=== PATIENT | female | born 2000 | race American Indian/Alaskan Native ===

== ENCOUNTER 2022-01-02 11:54 | Inpatient (IN) | payer MEDICAID, OTHER ==
[2022-01-02] MEDS ORDERED: LIDOCAINE-MPF (1%) 10 MG/1 ML VIAL 5 ML INFILTRATI ONE (19:01)
[2022-01-02] MEDS ORDERED: KETOROLAC 10 MG TAB PO ONE (19:02)
--- NOTE | 2022-01-02 19:02 | Emergency Department Report ---
ED Abdominal Pain HPI - General Chief Complaint: Abdominal Pain Stated Complaint: RT SIDE PAIN Time Seen by Provider: 01/02/22 18:09 Source: patient Mode of arrival: Ambulatory Limitations: No Limitations - History of Present Illness Initial Comments: 21-year-old black female with no past medical history presents to the emergency department for evaluation of 1 month history of abdominal pain and vaginal discharge. She states that she was treated at another ER about a week ago, diagnosed with a urinary tract infection, and sent home with a 7-day course of Macrobid. She states that she took medication as prescribed but abdominal pain has gotten worse. She denies fever, nausea, and vomiting. She states that pain is worse when she walks at times. -: Gradual, month(s) Location: diffuse (1) Radiation: none Migration to: no migration Severity scale (0 -10): 10 Quality: cramping, aching Consistency: constant Worsens With: movement, other (Palpation) Associated Symptoms: dysuria. denies: nausea, vomiting, diarrhea, fever, chills, hematemesis, hematochezia, melena, hematuria, anorexia, syncope - Related Data Home Medications Medication Instructions Recorded Confirmed Last Taken No Known Home Medications [No 01/03/22 01/03/22 Unknown Reported Home Medications] Allergies Allergy/AdvReac Type Severity Reaction Status Date / Time No Known Allergies Allergy Verified 01/02/22 22:51 ED Review of Systems ROS: Stated complaint: RT SIDE PAIN Other details as noted in HPI Comment: All other systems reviewed and negative Constitutional: denies: chills, fever Respiratory: denies: shortness of breath, SOB with exertion, SOB at rest Cardiovascular: denies: chest pain, palpitations, dyspnea on exertion Gastrointestinal: abdominal pain. denies: nausea, vomiting, diarrhea, h ematemesis, melena, hematochezia Genitourinary: dysuria, discharge. denies: urgency, frequency, hematuria, abnormal menses Musculoskeletal: denies: back pain Neurological: denies: headache, weakness ED Past Medical Hx - Medications Home Medications: Home Medications Medication Instructions Recorded Confirmed Last Taken Type No Known Home Medications [No 01/03/22 01/03/22 Unknown History Reported Home Medications] ED Physical Exam - General Limitations: No Limitations General appearance: alert, in no apparent distress - Head Head exam: Present: atraumatic, normocephalic - Eye Eye exam: Present: normal appearance. Absent: conjunctival injection - Neck Neck exam: Present: normal inspection. Absent: lymphadenopathy - Respiratory Respiratory exam: Present: normal lung sounds bilaterally. Absent: respiratory distress, wheezes, rales, rhonchi, stridor, chest wall tenderness - Cardiovascular Cardiovascular Exam: Present: regular rate, normal heart sounds - GI/Abdominal GI/Abdominal exam: Present: soft, tenderness, guarding (Bilateral lower quadrant), normal bowel sounds. Absent: distended, rebound, rigid - External exam: Present: other (Noted to have purulent discharge to area). Absent: erythema, swelling, lesions, bleeding Speculum exam: Present: vaginal discharge, cervical discharge Bi-manual exam: Present: cervical motion tendernes, adnexal tenderness, uterine tenderness - Extremities Exam Extremities exam: Present: normal inspection, normal capillary refill. Absent: pedal edema, joint swelling, calf tenderness - Back Exam Back exam: Present: normal inspection, CVA tenderness (R), CVA tenderness (L). Absent: tenderness - Neurological Exam Neurological exam: Present: alert, oriented X3, normal gait - Psychiatric Psychiatric exam: Present: normal affect, normal mood - Skin Skin exam: Present: warm, dry, intact, normal color ED Course Vital Signs 01/02/22 01/02/22 01/03/22 13:58 20:36 03:05 Temperature 98.8 F Pulse Rate 95 H Respiratory 18 16 16 Rate Blood Pressure 105/74 [Right] O2 Sat by Pulse 99 Oximetry ED Medical Decision Making - Lab Data Result diagrams: 01/03/22 08:07 01/02/22 18:48 - Radiology Data Radiology results: report reviewed CT abdomen and pelvis: FINDINGS: LOWER CHEST: No significant abnormality. AORTA / ARTERIES: No significant abnormality. IVC / VEINS: No significant abnormality. LYMPH NODES: No significant adenopathy. COLON: No significant abnormality. APPENDIX: No significant abnormality. STOMACH / SMALL BOWEL: No significant abnormality. PERITONEUM: No free fluid. No free air. No fluid collection. LIVER: No significant abnormality. GALLBLADDER: No significant abnormality. BILE DUCTS: No significant abnormality. PANCREAS: No significant abnormality. SPLEEN: No significant abnormality. ADRENALS: No significant abnormality. RIGHT KIDNEY / URETER: No significant abnormality. LEFT KIDNEY / URETER: No significant abnormality. URINARY BLADDER: No significant abnormality. REPRODUCTIVE ORGANS: Within the bilateral adnexa there are fusiform fluid collections which demonstrate central area of hypodensity and peripheral increased density. There is also some mesenteric fat stranding along the right deep pelvis. SKELETAL SYSTEM: No significant abnormality. ADDITIONAL FINDINGS: None. IMPRESSION: 1. CT findings suggesting tubo-ovarian abscess versus hydrosalpinx versus bilateral ovarian cysts. Pelvic ultrasound recommended for further evaluation. Ultrasound pelvic complete and transvaginal: FINDINGS: Uterus: Present. Size: 6.8 x 4.7 x 5.3 cm. Endometrial complex: Normal measuring 0.7 cm. Mass lesions: None. Additional findings: None. Right Ovary: Size: 4.5 x 3.3 x 4.2 cm Blood flow: Normal. Cyst or mass: There is a 3.6 cm probable hemorrhagic cyst. No other suspicious solid or cystic lesions. Left Ovary: Size: 4.7 x 3.4 x 4.2 cm Blood flow: Normal. Cyst or mass: A 2.5 cm cyst containing internal echoes is noted, possibly representing a hemorrhagic cyst. No other suspicious solid or cystic lesions. Urinary Bladder: Normal. Free Fluid: A small amount of free fluid is present along the pelvis. Additional Findings: The fallopian tubes are dilated and contain echogenic material. IMPRESSION: 1. Abnormal appearance of the fallopian tubes, concerning for tubo-ovarian abscesses/pyosalpinx. 2. Complex bilateral ovarian cysts as above may represent hemorrhagic cyst. Reevaluation with a pelvic ultrasound in 6-8 weeks is recommended. - Medical Decision Making 21-year-old black female with no past medical history presents to the emergency department for evaluation of 1 month history of abdominal pain and vaginal discharge. She states that she was treated at another ER about a week ago, di agnosed with a urinary tract infection, and sent home with a 7-day course of Macrobid. She states that she took medication as prescribed but abdominal pain has gotten worse. She denies fever, nausea, and vomiting. She states that pain is worse when she walks at times. Exam impressive for significant abdominal tenderness with light touch along with significant cervical motion tenderness. CT concerning for tubo-ovarian cyst, so pelvic and transvaginal ultrasound obtained which showed likely tubo-ovarian abscess. Wet prep positive for trichomonas. Patient treated with Rocephin 500 mg IM, doxycycline 100 mg IV, and Flagyl 500 mg IV in the emergency department along with morphine and Toradol for pain. Case discussed with Dr. Archer, WRAPPER OPERATOR, admit patient for further evaluation and management. Plan of care discussed with patient and sister and they verbalized understanding of and agr eement with. - Differential Diagnosis PID, tubu-ovarian abscess, std, pyelonephritis. Critical care attestation.: If time is entered above; I have spent that time in minutes in the direct care of this critically ill patient, excluding procedure time. ED Disposition Clinical Impression: Tubo-ovarian abscess Disposition: ADMITTED INPATIENT Is pt being admited?: Yes Condition: Stable
[2022-01-02 19:43] LABS: Mean Corpuscular HGB Conc 33 % (30-34); Mean Corpuscular Volume 80 fl (79-97); Platelet Count 389 K/mm3 (140-440); Red Cell Distribution Width 14.9 % (13.2-15.2)
[2022-01-02 19:50] LABS: Alanine Aminotransferase 8 units/L (7-56); Albumin 4.4 g/dL (3.9-5); Blood Urea Nitrogen 6 mg/dL (7-17); Calcium 9.7 mg/dL (8.4-10.2); Hemolysis Index 9
[2022-01-02 20:10] LABS: BUN/Creatinine Ratio 10
[2022-01-02 20:15] LABS: Bilirubin,Urine NEG (Negative); Blood,Urine NEG (Negative); Color,Urine Yellow (Yellow); Mucus,Urine 3+ /HPF; Protein,Urine <15 mg/dL mg/dL (Negative)
--- NOTE | 2022-01-02 20:36 | Cat Scan Report ---
CT ABDOMEN AND PELVIS WITHOUT CONTRAST INDICATION / CLINICAL INFORMATION: abd pain. TECHNIQUE: Axial CT images were obtained through the abdomen and pelvis without IV contrast. All CT scans at this location are performed using CT dose reduction for ALARA by means of automated exposure control. COMPARISON: None available. FINDINGS: LOWER CHEST: No significant abnormality. AORTA / ARTERIES: No significant abnormality. IVC / VEINS: No significant abnormality. LYMPH NODES: No significant adenopathy. COLON: No significant abnormality. APPENDIX: No significant abnormality. STOMACH / SMALL BOWEL: No significant abnormality. PERITONEUM: No free fluid. No free air. No fluid collection. LIVER: No significant abnormality. GALLBLADDER: No significant abnormality. BILE DUCTS: No significant abnormality. PANCREAS: No significant abnormality. SPLEEN: No significant abnormality. ADRENALS: No significant abnormality. RIGHT KIDNEY / URETER: No significant abnormality. LEFT KIDNEY / URETER: No significant abnormality. URINARY BLADDER: No significant abnormality. REPRODUCTIVE ORGANS: Within the bilateral adnexa there are fusiform fluid collections which demonstra te central area of hypodensity and peripheral increased density. There is also some mesenteric fat st randing along the right deep pelvis. SKELETAL SYSTEM: No significant abnormality. ADDITIONAL FINDINGS: None. IMPRESSION: 1. CT findings suggesting tubo-ovarian abscess versus hydrosalpinx versus bilateral ovarian cysts. Pe lvic ultrasound recommended for further evaluation. Signer Name: Dominic Post DO Signed: 01/02/2022 8:32 PM Workstation Name: [id number]
--- NOTE | 2022-01-02 22:35 | Ultrasound Report ---
ULTRASOUND PELVIS INDICATION: Pelvic pain. TECHNIQUE: Transabdominal and Transvaginal. Duplex Color Doppler used: Yes. COMPARISON: CT abdomen and pelvis without contrast performed on the same day. FINDINGS: Uterus: Present. Size: 6.8 x 4.7 x 5.3 cm. Endometrial complex: Normal measuring 0.7 cm. Mass lesions: None. Additional findings: None. Right Ovary: Size: 4.5 x 3.3 x 4.2 cm Blood flow: Normal. Cyst or mass: There is a 3.6 cm probable hemorrhagic cyst. No other suspicious solid or cystic lesion s. Left Ovary: Size: 4.7 x 3.4 x 4.2 cm Blood flow: Normal. Cyst or mass: A 2.5 cm cyst containing internal echoes is noted, possibly representing a hemorrhagic cyst. No other suspicious solid or cystic lesions. Urinary Bladder: Normal. Free Fluid: A small amount of free fluid is present along the pelvis. Additional Findings: The fallopian tubes are dilated and contain echogenic material. IMPRESSION: 1. Abnormal appearance of the fallopian tubes, concerning for tubo-ovarian abscesses/pyosalpinx. 2. Complex bilateral ovarian cysts as above may represent hemorrhagic cyst. Reevaluation with a pelvi c ultrasound in 6-8 weeks is recommended. Signer Name: Moncho Delvalle MD Signed: 01/02/2022 10:31 PM Workstation Name: [id number]
[2022-01-02] MEDS ORDERED: DOXYCYCLINE HYCLATE 100 MG in SODIUM CHLORIDE 0.9% 250ML 250 ML IV ONE (22:46)
[2022-01-02] MEDS ORDERED: MORPHINE 4 MG/1 ML INJ IV ONE (22:49)
[2022-01-02] MEDS ORDERED: ONDANSETRON 4 MG/2 ML INJ IV ONE (22:49)
[2022-01-02] MEDS ORDERED: metroNIDAZOLE/NS 500 MG/100 ML 500 MG/100 ML BAG IV ONE (22:50)
[2022-01-03] MEDS ORDERED: ACETAMINOPHEN 325 MG TAB PO PRN (00:38)
[2022-01-03] MEDS ORDERED: MORPHINE 2 MG/1 ML INJ IV PRN (00:38)
--- NOTE | 2022-01-03 00:48 | History and Physical Report ---
History of Present Illness Date of examination: 01/02/22 Chief complaint: Abdominal pain, vaginal discharge, and urinary tract infection History of present illness: 20-year-old reports a 1 month history of abdominal pain and vaginal discharge. She was diagnosed with a urinary tract infection 1 week ago and took Macrobid for this; however, her symptoms did not improve and she began to start having back pain. She sought care in the emergency department today. ED provider examined the patient and noted purulent vaginal discharge, cervical motion tenderness, and bilateral costovertebral angle tenderness. Pelvic ultrasound revealed ovarian cysts with a complex appearance; however, there was suspicion for tubo-ovarian abscess. I reviewed the images myself, and I had clinical suspicion for bilateral pyosalpinx. The patient received Rocephin 500 mg IM x1 in the emergency department. Urinalysis had a significant amount of white blood cells. This patient is being admitted to the general medical floor for IV antibiotics for treatment of suspected pyosalpinx and pyelonephritis. Past History Past Medical History: no pertinent history Past Surgical History: no surgical history Family/Genetic History: none Social history: no significant social history - Obstetrical History : 1 Para: 0 Medications and Allergies Allergies Allergy/AdvReac Type Severity Reaction Status Date / Time No Known Allergies Allergy Verified 01/02/22 22:51 Active Meds: Active Medications Acetaminophen (Acetaminophen 325 Mg Tab) 650 mg PO Q4H PRN PRN Reason: Pain, Mild (1-3) Ceftriaxone Sodium (Ceftriaxone 1 Gm Inj) 1 gm IM Q24H ZACKARY; Protocol Stop: 01/10/22 00:44 Doxycycline Hyclate 100 mg/ (Sodium Chloride) 250 mls @ 250 mls/hr IV Q12HR ZACKARY; Protocol Stop: 01/10/22 00:59 Metronidazole (Flagyl 500 Mg/100 Ml) 500 mg in 100 mls @ 100 mls/hr IV Q12H ZACKARY; Protocol Stop: 01/10/22 00:59 Ibuprofen (Ibuprofen 800 Mg Tab) 800 mg PO Q8H PRN PRN Reason: Pain, Moderate (4-6) Review of Systems All systems: negative - Vital Signs Vital signs: Vital Signs Temp Pulse Resp BP Pulse Ox 98.8 F 95 H 18 105/74 99 01/02/22 13:58 01/02/22 13:58 01/02/22 13:58 01/02/22 13:58 01/02/22 13:58 Temp Pulse Resp BP Pulse Ox 98.8 F 95 H 16 105/74 99 01/02/22 13:58 01/02/22 13:58 01/02/22 20:36 01/02/22 13:58 01/02/22 13:58 - Physical Exam Breasts: Positive: normal Cardiovascular: Regular rate Lungs: Positive: Normal air movement Abdomen: Positive: normal appearance, soft, tenderness, other (Bilateral costovertebral angle tenderness) Genitourinary (Female): Positive: normal external genitalia, normal perenium Vagina: Positive: discharge Cervix: Positive: other (Tenderness) Uterus: Positive: normal size, tender Adnexa: both: tenderness Anus/Rectum: Positive: normal perianal skin Extremities: Positive: normal Deep Tendon Reflex Grade: Normal +2 Results Result Diagrams: 01/02/22 18:48 01/02/22 18:48 Abnormal lab results 01/02/22 01/02/22 01/02/22 Range/Units 18:48 18:48 18:48 WBC 14.6 H (4.5-11.0) K/mm3 MCH 27 L (28-32) pg Sodium 136 L (137-145) mmol/L Chloride 96.8 L (98-107) mmol/L BUN 6 L (7-17) mg/dL C-Reactive Protein 14.30 H (0.00-1.30) mg/dL Lipase 12 L (13-60) units/L Urine WBC (Auto) (0.0-6.0) /HPF 01/02/22 Range/Units Unknown WBC (4.5-11.0) K/mm3 MCH (28-32) pg Sodium (137-145) mmol/L Chloride (98-107) mmol/L BUN (7-17) mg/dL C-Reactive Protein (0.00-1.30) mg/dL Lipase (13-60) units/L Urine WBC (Auto) 76.0 H (0.0-6.0) /HPF Urine culture ordered. Gonorrhea/chlamydia DNA probe ordered. Wet mount performed. Ultrasound: report reviewed (Transvaginal pelvic ultrasound= tubo-ovarian abscess suspected.), other (Bilateral renal ultrasound ordered.) Assessment and Plan - Patient Problems (1) Pyosalpinx Current Visit: Yes Status: Acute Plan to address problem: 1.) Admit patient to general medical floor. 2.) Start IV Rocephin, IV doxycycline, and IV metronidazole per CDC recommendation for treatment. 3.) Continue IV fluids. 4.) Repeat CBC in the morning. 5.) Likely discharge after 24-hour of IV antibiotics, and prescription of oral doxycycline and metronidazole to be given for 14 days. 6.) Await results of gonorrhea/chlamydia DNA probe. (2) Pyelonephritis Current Visit: Yes Status: Acute Plan to address problem: 1.) Prescribe Rocephin 1 g every 24 hours x7 days. 2.) After 24 hours of IV antibiotics, likely discharge home with oral Omnicef or Suprax. 3.) Await results of urine culture. 4.) Await results of bilateral renal ultrasound.
--- NOTE | 2022-01-03 01:57 | Ultrasound Report ---
ULTRASOUND RENAL INDICATION: CVA Tenderness. COMPARISON: No relevant prior imaging study available. FINDINGS: RIGHT KIDNEY: Size: 11.9 cm. Echogenicity: Normal. Parenchymal thickness: Normal. Hydronephrosis: None. Cyst or mass: None. Stones: None. LEFT KIDNEY: Size: 11.2 cm. Echogenicity: Normal. Parenchymal thickness: Normal. Hydronephrosis: None. Cyst or mass: None. Stones: None. Urinary Bladder: No significant abnormality. Free Fluid: None. Additional Findings: None. IMPRESSION 1. No acute sonographic abnormality of the kidneys. Signer Name: Moncho Delvalle MD Signed: 01/03/2022 1:52 AM Workstation Name: [id number]
[2022-01-03] MEDS: IBUPROFEN 800 MG TAB PO PRN ×2 (03:05→18:46)
[2022-01-03] MEDS: SODIUM CHLORIDE 0.9% 1000 ML 1,000 ML IV SCH ×2 (04:21→14:10)
[2022-01-03] MEDS: DOXYCYCLINE HYCLATE 100 MG in SODIUM CHLORIDE 0.9% 250ML 250 ML IV SCH ×2 (04:23→17:28)
[2022-01-03] MEDS: metroNIDAZOLE/NS 500 MG/100 ML 500 MG/100 ML BAG IV SCH ×2 (05:29→16:39)
[2022-01-03 08:21] LABS: Basophils # (Auto) 0.1 K/mm3 (0.0-0.1); Basophils % (Auto) 0.5 % (0.0-1.8); Eosinophils # (Auto) 0.3 K/mm3 (0.0-0.4); Eosinophils % (Auto) 2.4 % (0.0-4.3); Lymphocytes # (Auto) 2.1 K/mm3 (1.2-5.4); Lymphocytes % (Auto) 19.1 % (13.4-35.0); Mean Corpuscular HGB Conc 31 % (30-34); Mean Corpuscular Volume 80 fl (79-97); Monocytes % (Auto) 8.8 % (0.0-7.3); Platelet Count 344 K/mm3 (140-440); Red Blood Count 3.98 M/mm3 (3.65-5.03); Red Cell Distribution Width 14.8 % (13.2-15.2)
[2022-01-03] MEDS: cefTRIAXone/NS 1 GM/50 ML 1 GM/50 ML BAG IV SCH (10:59)
--- NOTE | 2022-01-03 11:45 | Progress Note ---
Assessment and Plan Pelvic pain with right TOA and bilateral enlarged fallopian tubes, afebrile 1. Continue triple abx rocephin, doxy and flagyl as per admit plan unless symptoms worsen 2. plan of care discussed with pt that she will need to continue antibiotics for a complete 2wks as an outpatient after receiving IV treatment x24hrs and need for follow up as an out patient in clinic with sequelae of infertility if left untreated. Surgical mgt if symptoms worsens versus IR drainage as indicated All questions encouraged and answered Subjective Date of service: 01/03/22 Principal diagnosis: HD#1 with Pelvic pain, left TOA and bilat hydro/pyo salpinx Interval history: pt denies N/V/F/C and has been receiving IV triple antibiotics admitted earlier this morning. Pt has tolerated regular diet. pt denies dysuria and states she has voided only once since today. Objective - Constitutional Vitals: Vital Signs - 12hr 01/03/22 01/03/22 01/03/22 03:05 03:31 04:05 Temperature 98.0 F Pulse Rate 98 H Pulse Rate [ Right Radial] Respiratory 16 18 18 Rate Blood Pressure 95/57 Blood Pressure [Right] O2 Sat by Pulse 99 Oximetry 01/03/22 01/03/22 01/03/22 04:38 08:27 08:30 Temperature 97.6 F Pulse Rate 67 Pulse Rate [ 80 Right Radial] Respiratory 18 18 Rate Blood Pressure Blood Pressure 92/56 [Right] O2 Sat by Pulse 99 98 99 Oximetry General appearance: Present: no acute distress - Neck Neck: normal ROM - Respiratory Respiratory effort: normal - Breasts Breasts: deferred - Cardiovascular Rhythm: regular Extremities: No edema Extremity abnormal: other (neg CVAT noted today) - Gastrointestinal General gastrointestinal: Present: soft - Genitourinary Female genitourinary: other (Right mid and RLQ tenderness without rebound) - Integumentary Integumentary: warm, dry - Neurologic Neurologic: moves all extremities - Psychiatric Psychiatric: cooperative - Labs CBC & Chem 7: 01/03/22 08:07 01/02/22 18:48 Labs: Abnormal lab results 01/02/22 01/02/22 01/02/22 Range/Units 18:48 18:48 18:48 WBC 14.6 H (4.5-11.0) K/mm3 Hgb (10.1-14.3) gm/dl MCH 27 L (28-32) pg [place] % (Auto) (0.0-7.3) % [place] # (Auto) (0.0-0.8) K/mm3 Seg Neutrophils # (1.8-7.7) K/mm3 Sodium 136 L (137-145) mmol/L Chloride 96.8 L (98-107) mmol/L BUN 6 L (7-17) mg/dL C-Reactive Protein 14.30 H (0.00-1.30) mg/dL Lipase 12 L (13-60) units/L Urine WBC (Auto) (0.0-6.0) /HPF 01/02/22 01/03/22 Range/Units Unknown 08:07 WBC 11.2 H (4.5-11.0) K/mm3 Hgb 10.0 L (10.1-14.3) gm/dl MCH 25 L (28-32) pg [place] % (Auto) 8.8 H (0.0-7.3) % [place] # (Auto) 1.0 H (0.0-0.8) K/mm3 Seg Neutrophils # 7.8 H (1.8-7.7) K/mm3 Sodium (137-145) mmol/L Chloride (98-107) mmol/L BUN (7-17) mg/dL C-Reactive Protein (0.00-1.30) mg/dL Lipase (13-60) units/L Urine WBC (Auto) 76.0 H (0.0-6.0) /HPF Medications & Allergies - Medications Allergies/Adverse Reactions: Allergies No Known Allergies Allergy (Verified 01/02/22 22:51) Home Medications: Home Medications Medication Instructions Recorded Confirmed Last Taken Type No Known Home Medications [No 01/03/22 01/03/22 Unknown History Reported Home Medications] Active Medications: Generic Name Dose Route Start Last Admin Trade Name Freq PRN Reason Stop Dose Admin Acetaminophen 650 mg 01/03/22 00:38 Acetaminophen 325 Mg Tab PO Q4H PRN Pain, Mild (1-3) Doxycycline Hyclate 100 mg/ 250 mls @ 250 mls/hr 01/03/22 01:00 01/03/22 04:23 Sodium Chloride IV 250 mls/hr Q12H ZACKARY Administration Protocol Metronidazole 500 mg in 100 mls @ 100 mls/hr 01/03/22 01:00 01/03/22 05:29 Flagyl 500 Mg/100 Ml IV 01/10/22 00:59 100 mls/hr Q12H ZACKARY Administration Protocol Sodium Chloride 1,000 mls @ 125 mls/hr 01/03/22 01:00 01/03/22 04:21 Nacl 0.9% 1000 Ml IV 125 mls/hr DIRECT ZACKARY Administration Ceftriaxone Sodium 1 gm in 50 mls @ 100 mls/hr 01/03/22 11:00 01/03/22 10:59 Rocephin/Ns 1 Gm/50 Ml IV 100 mls/hr Q24H ZACKARY Administration Protocol Ibuprofen 800 mg 01/03/22 00:38 01/03/22 03:05 Ibuprofen 800 Mg Tab PO 800 mg Q8H PRN Administration Pain, Moderate (4-6)
[2022-01-04] MEDS: SODIUM CHLORIDE 0.9% 1000 ML 1,000 ML IV SCH ×2 (00:38→11:59)
[2022-01-04] MEDS: metroNIDAZOLE/NS 500 MG/100 ML 500 MG/100 ML BAG IV SCH ×2 (04:05→15:48)
[2022-01-04] MEDS: DOXYCYCLINE HYCLATE 100 MG in SODIUM CHLORIDE 0.9% 250ML 250 ML IV SCH (05:44)
[2022-01-04] MEDS: cefTRIAXone/NS 1 GM/50 ML 1 GM/50 ML BAG IV SCH (11:42)
[2022-01-04] MEDS: IBUPROFEN 800 MG TAB PO PRN (15:23)
--- NOTE | 2022-01-04 16:12 | Discharge Summary ---
Providers - Providers Date of Admission: 01/03/22 00:38 Date of discharge: 01/04/22 Attending physician: ASMITA TREJO MD 01/03/22 Consult to Case Management [CONS] Routine Services Needed at Discharge: Other Filter Tip Catcher Notified:: yes Comment:: This patient has no insurance. Please assist with getting Medicaid. Primary care physician: RESEARCH COORDINATOR Hospitalization Reason for admission: other (bilatera ovarain cyst vs TOA) baby: female Condition at discharge: Stable Disposition: 01 HOME / SELF CARE / HOMELESS Plan - Discharge Medications Prescriptions: metroNIDAZOLE [Metronidazole] 500 mg PO BID #7 DOXYCYCLINE Hyclate [Vibramycin CAP] 100 mg PO Q12HR #14 capsule - Provider Discharge Summary Activity: no sex for 6 weeks Diet: routine Additional instructions: [] Smoking cessation referral if applicable(refer to patient education folder for contact #) [] Refer to [facility]'s [facility] Booklet Call your doctor immediately for: * Fever > 100.5 * Heavy vaginal bleeding ( >1 pad per hour) * Severe persistent headache * Shortness of breath * Reddened, hot, painful area to leg or breast * Drainage or odor from incision. * Keep incision clean and dry at all times and follow doctor's instructions regarding bathing/showering - Follow up plan Follow up: PRIMARY CARE, [Primary Care Provider] - 3-5 Days ASMITA TREJO MD [Staff Physician] - 7 Days
--- NOTE | 2022-01-04 16:13 | Progress Note ---
Subjective - Subjective Date of service: 01/04/22 Principal diagnosis: HD#2 with Pelvic pain, left TOA and bilat hydro/pyo salpinx Interval history: afebrile no pelvic pain DC home on po abx and FUP in 7 days Halima Orellana MD Objective - Vital Signs Latest vital signs: Vital Signs Temp Pulse Resp BP Pulse Ox 01/04/22 11:33 98.0 F 82 18 113/68 99 01/04/22 08:10 100 01/04/22 07:43 97.7 F 75 18 99/65 100 01/04/22 04:20 97.8 F 73 18 104/71 100 01/04/22 00:19 98.0 F 79 18 92/44 100 01/03/22 20:30 100 01/03/22 19:46 98.4 F 87 18 114/68 100 Intake and Output 01/04/22 01/04/22 01/04/22 07:59 15:59 23:59 Intake Total 400 1840 Output Total 2650 Balance 400 -810 Intake: IV 100 1000 FLAGYL 500 MG/100 ML 500 100 mg In 100 ml @ 100 mls/hr IV Q12H ZACKARY Rx#: [id number] NaCl 0.9% 1000 ml 1,000 1000 ml @ 125 mls/hr IV DIRECT ZACKARY Rx#:[id number] Oral 480 Intake, Free Water 300 360 Output: Urine 2650 Void 2650 Other: Total, Intake Amount 480 Total, Output Amount 900 Voiding Method Toilet # Voids Void 1 3
[2022-01-04 17:13] VITALS: BP 118/68
== END 2022-01-04 17:17 | disposition home or self-care (01) | DRG 758 ==
LOC: ED 11:54 → OB 01-03 00:38
PROVIDERS: ADMIT Obstetrics & Gynecology; ATTEND Obstetrics & Gynecology
DX: N70.93 Salpingitis and oophoritis, unspecified (principal); N12 Tubulo-interstitial nephritis, not specified as acute or chronic; Z20.822 Contact with and (suspected) exposure to COVID-19
CPT/HCPCS: 36415; 74176; 76770; 76830; 76856; 80053; 81001; 83690; 84703; 85025; 85027; 86140; 87086; 87210; 87591; G0378; J3490; J7517; J0696; J7030; J7050; U0003

== ENCOUNTER 2022-05-14 16:37 | Emergency (ER) | payer SELFPAY ==
[2022-05-14 18:05] VITALS: BP 151/86
== END 2022-05-15 15:27 | disposition left against medical advice (07) ==
LOC: ED 16:37
DX: R11.10 Vomiting, unspecified (principal); R07.9 Chest pain, unspecified; Z53.21 Procedure and treatment not carried out due to patient leaving prior to being seen by health care provider